=== PATIENT | male | born 2000 | race Caucasian/White ===

== ENCOUNTER → 2024-07-06 15:04 | Outpatient (REF) | payer BC, SELFPAY | LOC: HWRAD 15:04 | PROVIDERS: ATTENDING PHYSICIAN Physician Assistant Medical | DX: M54.9 Dorsalgia, unspecified (principal); M43.6 Torticollis | CPT/HCPCS: 72052; 72072 ==

== ENCOUNTER → 2024-11-03 15:02 | Outpatient (REF) | payer BC, SELFPAY | LOC: HWRAD 15:02 | PROVIDERS: ATTENDING PHYSICIAN Physician Assistant Medical | DX: M25.552 Pain in left hip (principal) | CPT/HCPCS: 73502 ==

== ENCOUNTER → 2025-03-08 09:41 | Outpatient (REF) | payer BC, SELFPAY | LOC: HWRAD 09:41 | PROVIDERS: ATTENDING PHYSICIAN Physician Assistant Medical | DX: N50.89 Other specified disorders of the male genital organs (principal) | CPT/HCPCS: 76870; 93976 ==

== ENCOUNTER 2025-06-06 14:31 | Emergency (ER) | payer BC, SELFPAY ==
[2025-06-06 14:47] VITALS: BP 169/108
[2025-06-06 16:37] VITALS: BP 134/83
[2025-06-06] MEDS: TYLENOL 1000 MG PO (16:54)
[2025-06-06 17:00] VITALS: BP 135/73
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
== END 2025-06-06 17:36 | disposition home or self-care (01) ==
LOC: EMR 14:31
PROVIDERS: EMERGENCY PHYSICIAN Emergency Medicine; FAMILY PHYSICIAN Family Medicine
DX: Z77.098 Contact with and (suspected) exposure to other hazardous, chiefly nonmedicinal, chemicals (principal); R06.02 Shortness of breath; R42 Dizziness and giddiness
CPT/HCPCS: 99283; 71046; 93005

== ENCOUNTER 2025-09-16 10:33 | Emergency (ER) | payer SELFPAY ==
[2025-09-16 10:38] VITALS: BP 160/108
[2025-09-16] MEDS: MOTRIN 600 MG PO (11:31)
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
[2025-09-16] MEDS: FLEXERIL 10 MG PO (13:56)
== END 2025-09-16 14:10 | disposition home or self-care (01) ==
LOC: EMR 10:33
PROVIDERS: EMERGENCY PHYSICIAN Emergency Medicine; FAMILY PHYSICIAN Family Medicine
DX: M62.838 Other muscle spasm (principal); M54.2 Cervicalgia; R20.2 Paresthesia of skin; V43.62XA Car passenger injured in collision with other type car in traffic accident, initial encounter
CPT/HCPCS: 99284; 72125